=== PATIENT | male | born 1985 | race Caucasian/White ===

== ENCOUNTER 2021-06-30 21:08 | Emergency (ER) | payer OTHER, SELFPAY ==
[2021-06-30 21:15] VITALS: BP 138/82; PULSE 109; RESP 18; TEMP 36.7; O2SAT 95; BMI 32.5
--- NOTE | 2021-06-30 21:25 | ED.SKABFB ---
HPI - Skin/Abscess/Foreign Bdy General Chief complaint: Skin/Abscess/Foreign Body Stated complaint: possible fishbone stuck in throat Time Seen by Provider: 06/30/21 21:23 Source: patient Mode of arrival: Ambulatory Limitations: no limitations History of Present Illness HPI narrative: 35-year-old male who was eating salmon tonight for dinner when he felt a fish bone get stuck in his throat. He attempted to vomit to get the bone out without any relief he ate peanut butter and did other home remedies. He has irritation in his throat. He is able to drink but it feels irritated. Currently managing his own secretions. He is from out of town and supposed to get on an airplane in the morning to return home. Related Data Allergies Allergy/AdvReac Type Severity Reaction Status Date / Time No Known Drug Allergies Allergy Verified 06/30/21 21:18 Review of Systems Review of Systems Narrative: GENERAL: Denies chills,fever HEENT: See HPI RESPIRATORY: Denies dyspnea, cough, wheezing CARDIOVASCULAR: Denies chest pain, palpitations GASTROINTESTINAL: Denies nausea, vomiting MUSCULOSKELETAL: Denies extremity pain, injury SKIN: No rash, no laceration, no pruritus NEUROLOGIC: Denies weakness, dizziness, headache, numbness 8 point review of systems is negative except for those stated above and HPI Patient History Social History Smoking Status: Never smoker Smoking Status: Never smoker alcohol intake frequency: a few times a week Substance Use Type: marijuana Exam Initial Vital Signs Initial Vital Signs: Vital Signs Temperature 98.1 F 06/30/21 21:15 Pulse Rate 109 H 06/30/21 21:15 Respiratory Rate 18 06/30/21 21:15 Blood Pressure 138/82 06/30/21 21:15 Pulse Oximetry 95 06/30/21 21:15 GENERAL: Alert well-appearing [age]-year-old maleand in no acute distress. HEENT: Head atraumatic,EOMI, pupils reactive, CARDIOVASCULAR: Regular rate and rhythm without murmurs, rubs or gallops. RESPIRATORY: Breath sounds equal bilaterally, no wheezes rales or rhonchi. No respiratory distress no stridor. Managing own secretions EXTREMITIES: Normal range of motion, no clubbing or edema. Neurovascularly intact NEUROLOGICAL: Alert and oriented x4.Normal gait and speech. SKIN: Warm, dry, no laceration, no petechiae, no rashes or lesions. Course Orders Ordered: ED Orders 06/30/21 21:29 XR soft tissue neck Stat 06/30/21 22:46 CT soft tissue neck wo con Stat Discontinued Medications Al Hydrox/Mg Hydrox/Simethicone 20 ml/ Lidocaine HCl 15 ml 0 ml PO NOW ONE Stop: 07/01/21 00:01 Last Admin: 07/01/21 00:18 Dose: 35 ml Documented by: BREA Vital Signs Vital signs: Vital Signs - 8 hr 06/30/21 21:15 07/01/21 00:23 Temperature 98.1 F Pulse Rate 109 H 76 Respiratory Rate 18 18 Blood Pressure 138/82 112/68 Pulse Oximetry 95 97 MDM - Skin/Abscess/Foreign Bdy Imaging Data XR soft tissue neck: Radiologist's Impression: PROCEDURE:? XR SOFT TISSUE NECK ? INDICATIONS:? fishbone ? TECHNIQUE:? 2 views of the neck were acquired.? ? COMPARISON:? None. ? FINDINGS:? ? Airway:? The airway appears patent.? ? Soft tissues:? Possible small radiopaque foreign body at level C3-C4.? Prevertebral soft tissues are normal in thickness.? The epiglottis and aryepiglottic folds appear normal.? No soft tissue gas.? ? Bones:? No suspicious bony lesions.? Visualized cervical spine is normally aligned.? ? IMPRESSION:? Question small radio opaque foreign body at level C3-C4. ? ? Dictated by: Edgar Yoo M.D. on 06/30/2021 at 22:12 ? ? Approved by: Edgar Yoo M.D. on 06/30/2021 at 22:15 ct soft tissude neck: Radiologist's Impression: PROCEDURE:? CT SOFT TISSUE NECK WO CON ? INDICATIONS:? possible fishbone stuck in throat ? TECHNIQUE:? Non-contrast 3.0 mm axial sections acquired from the sella to the aortic arch.? Additional oblique axial 3.0 mm sections acquired through the pharynx.? 3 mm thick coronal and sagittal reformats were generated.? For radiation dose reduction, the following was used:? automated exposure control.? ? COMPARISON:? [facility], , XR SOFT TISSUE NECK, 06/30/2021, 21:24. ? FINDINGS:? Image quality:? Excellent.? ? Lymph nodes:? No enlarged lymph nodes seen throughout the neck.? ? Vessels:? Non-opacified vessels appear normal in caliber.? ? Neck spaces:? In this patient with this given history, scrutiny is given to the area of clinical concern.? No radiopaque foreign bodies are seen.? Scrutiny is given to the area of apparent abnormality seen on the prior plain film, at the C3-C4 level.? No significant abnormality can be seen at this site. ? The oropharynx, nasopharynx, and pharynx demonstrate no mucosal lesions.? The vocal cords, false vocal cords, pyriform sinuses, epiglottis, vallecula, and tongue base all appear normal.? Extramucosal spaces appear unremarkable.? ? Glands:? The parotid and submandibular glands appear normal, without stones.? Thyroid gland demonstrates no significant noncontrast abnormality.? ? Miscellaneous:? Visualized brain and orbits appear normal.? Lung apices appear clear.? Superficial soft tissues appear normal.? ? IMPRESSION:? No radiopaque foreign bodies are seen on these images. ? No CT abnormality is seen to correspond to the plain film abnormality, which may simply represent artifact. ? ? Dictated by: Sharan Brown M.D. on 06/30/2021 at 22:21 ? ? MDM Narrative Medical decision making narrative: Patient has history concerning for dislodged fish bone. Also possible that it is scratched his esophagus. He overall appears in no distress managing his secretions. X-ray shows questionable foreign body. [id number] Dr. De Jesus, surgery consult in regards to possible foreign body. At this time recommend CT. CT does not show any evidence of a foreign body. Patient remains completely stable but has an irritation in his throat. 0000-Dr. De Jesus updated on CT results. At this time recommends current treatment probably scratched throat. Can follow up outpatient. Patient is given GI cocktail to help Soothe esophagus. At this time it made him extremely nauseous. He was monitored started feeling better. He drank a bottle of water he had some food he ate can feel something movement blew was not sure or. At this time he would prefer to go home he is trying to get on an airplane in a few hours. CT does not show any foreign body. It is likely that his esophagus is scratched. However I have discussed with him if he has any new or worsening symptoms he needs to go to the nearest emergency department. Discharge Plan Departure Patient Disposition: Home Clinical Impression: Fishbone in throat Instructions: DI for Foreign Body, Swallowed-Adult Activity Restrictions/Additional Instructions: *You have been diagnosed with swallowed a fishbone *What to do: At this time after discussing with surgeon x-ray showed possible fishbone, the CT did not show fishbone, it was elected for conservative treatment of watchful waiting. If you are still having symptoms difficulty swallowing liquids or solids is increased difficulty managing her secretions is increased pain return to nearest emergency department *Continue to take medications as directed *Follow up with your primary care provider in 2-3 days *Return to ER if you should have any of the above symptoms or any new, worsening or concerning symptoms
--- NOTE | 2021-06-30 21:29 | DI.RAD.S_ITS ---
PROCEDURE: XR SOFT TISSUE NECK INDICATIONS: fishbone TECHNIQUE: 2 views of the neck were acquired. COMPARISON: None. FINDINGS: Airway: The airway appears patent. Soft tissues: Possible small radiopaque foreign body at level C3-C4. Prevertebral soft tissues are normal in thickness. The epiglottis and aryepiglottic folds appear normal. No soft tissue gas. Bones: No suspicious bony lesions. Visualized cervical spine is normally aligned. IMPRESSION: Question small radio opaque foreign body at level C3-C4. Dictated by: Edgar Yoo M.D. on 06/30/2021 at 22:12 Approved by: Edgar Yoo M.D. on 06/30/2021 at 22:15
--- NOTE | 2021-06-30 21:43 | PC.NURSE ---
PT feels like swallowed fish bone. has pain in throat. able to tolerate fluids.
--- NOTE | 2021-06-30 22:46 | DI.CT.S_ITS ---
PROCEDURE: CT SOFT TISSUE NECK WO CON INDICATIONS: possible fishbone stuck in throat TECHNIQUE: Non-contrast 3.0 mm axial sections acquired from the sella to the aortic arch. Additional oblique axial 3.0 mm sections acquired through the pharynx. 3 mm thick coronal and sagittal reformats were generated. For radiation dose reduction, the following was used: automated exposure control. COMPARISON: [facility], CR, XR SOFT TISSUE NECK, 06/30/2021, 21:24. FINDINGS: Image quality: Excellent. Lymph nodes: No enlarged lymph nodes seen throughout the neck. Vessels: Non-opacified vessels appear normal in caliber. Neck spaces: In this patient with this given history, scrutiny is given to the area of clinical concern. No radiopaque foreign bodies are seen. Scrutiny is given to the area of apparent abnormality seen on the prior plain film, at the C3-C4 level. No significant abnormality can be seen at this site. The oropharynx, nasopharynx, and pharynx demonstrate no mucosal lesions. The vocal cords, false vocal cords, pyriform sinuses, epiglottis, vallecula, and tongue base all appear normal. Extramucosal spaces appear unremarkable. Glands: The parotid and submandibular glands appear normal, without stones. Thyroid gland demonstrates no significant noncontrast abnormality. Miscellaneous: Visualized brain and orbits appear normal. Lung apices appear clear. Superficial soft tissues appear normal. IMPRESSION: No radiopaque foreign bodies are seen on these images. No CT abnormality is seen to correspond to the plain film abnormality, which may simply represent artifact. Dictated by: Sharan Brown M.D. on 06/30/2021 at 22:21 Approved by: Sharan Brown M.D. on 06/30/2021 at 22:23
[2021-07-01] MEDS: MAG HYDROX/ALUMINUM/SIMETH SUS 20 ML, LIDOCAINE VISCOUS 2% 15 ML PO (00:18)
[2021-07-01 00:23] VITALS: BP 112/68; PULSE 76; RESP 18; O2SAT 97
--- NOTE | 2021-07-01 00:28 | PC.NURSE ---
After GI cocktail pt having dryheaves. notified.
== END 2021-07-01 01:25 | disposition home or self-care (01) ==
PROVIDERS: Emergency Provider Emergency Medicine
DX: T18.0XXA Foreign body in mouth, initial encounter (principal); T17.208A Unspecified foreign body in pharynx causing other injury, initial encounter
CPT/HCPCS: 70360; 70490; 99283; 99284